=== PATIENT | female | born 1960 ===

== ENCOUNTER 2022-02-08 10:32 | Observation (INO) ==
[2022-02-08] MEDS ORDERED: GLUCAGON 1 MG VIAL IM PRN (13:20)
[2022-02-08] MEDS ORDERED: DEXTROSE 10% 250 ML BAG IV PRN (13:20)
[2022-02-08] MEDS ORDERED: hydrALAZINE 20 MG/1 ML VIAL IV PRN (13:20)
[2022-02-08 15:17] LABS: Albumin 3.6 G/DL (3.4-5.0); Bilirubin,Direct 0.15 MG/DL (0.0-0.20); Bilirubin,Indirect 0.6 MG/DL (0.0-1.0); Bilirubin,Total 0.7 MG/DL (0.20-1.00); Total Protein 7.2 G/DL (6.4-8.2)
[2022-02-08] MEDS: ENOXAPARIN 40 MG/0.4 ML SYRINGE SUBCUT SCH (18:03)
[2022-02-09 04:10] LABS: Basophils % 0.3 % (0.0-0.8); Eosinophils # 0.1 10*3/uL (0.0-0.87); Hemoglobin 14.1 GM/DL (12.0-16.0); Immature Granulocytes % 0.3 %; Immature Granulocytes Absolute 0.02 #; Lymphocytes # 2.5 10*3/uL (1.4-4.0); Lymphocytes % 42.5 % (21.3-54.2); Mean Corpuscular HGB Conc 34.4 GM/DL (32-36); Mean Corpuscular Volume 94.7 FL (87-102); Mean Platelet Volume 9.1 FL (9.6-12.0); Monocytes # 0.6 10*3/uL (0.11-0.8); Monocytes % 10.5 % (1.7-12.7); Neutrophils % 45.4 % (38.7-73.9); Platelet Count 206 T/CUMM (130-400); Red Blood Count 4.33 MC/CUMM (3.8-5.5); White Blood Count 5.9 T/CUMM (4-12)
[2022-02-09 04:47] LABS: Calcium 9.3 MG/DL (8.5-10.1); Osmolality,Calculated 275.7 MOS/KG (273-304); Potassium 3.8 MMOL/L (3.5-5.1); Risk Ratio 3.56; Thyroid Stimulating Hormone 3.07 uIU/ml (0.358-3.74); VLDL Cholesterol 21.6 MG/DL
[2022-02-09] MEDS ORDERED: IRON (CARBONYL)/VIT C/B12/FA TABLET PO SCH (09:00)
[2022-02-09 12:16] VITALS: BP 110/71
[2022-02-09] MEDS ORDERED: ASPIRIN EC 81 MG TABLET PO SCH (13:24)
[2022-02-09] MEDS: ENOXAPARIN 40 MG/0.4 ML SYRINGE SUBCUT SCH (13:29)
== END 2022-02-09 15:20 | disposition home or self-care (01) ==
LOC: N.TELEN → SUATTDRO 12:51
PROVIDERS: ADMIT Internal Medicine; ATTEND Internal Medicine